=== PATIENT | male | born 1990 | race Caucasian/White ===

== ENCOUNTER 2017-05-12 10:06 | Emergency (ER) | payer OTHER ==
[2017-05-12] MEDS ORDERED: MECLIZINE 12.5 MG TAB PO STA ×2 (10:28→11:20)
[2017-05-12] MEDS ORDERED: SODIUM CHLORIDE 0.9% 1,000 ML IV STA (10:28)
--- NOTE | 2017-05-12 10:31 | ED ---
General Adult HPI - General Chief complaint: Headache Stated complaint: Dizzy Time Seen by Provider: 05/12/17 10:14 Source: patient, RN notes reviewed Mode of arrival: ambulatory Limitations: no limitations - History of Present Illness Initial comments: Patient 27-year-old male with no significant past medical history, who presents emergency room today with chief complaint of feeling dizzy, and having a headache. Patient does admit that the dizziness started 4 days ago. States he feels a unsteady on his feet. States started when he was at home doing some work around the house. Patient does admit that symptoms have persisted. He states that he did go to urgent care 2 days ago for this was diagnosed with vertigo. States he was placed on a steroid Dosepak because there was some fluid on his ears. Patient states that headache started yesterday. States located to the back of his head. Describes it as aching and sharp. Currently rates as 6/10. She also admits to some blurry vision that seems to come and go. States that this time there is no blurry vision. Patient denies any other complaints or symptoms. Patient denies any recent fever, chills, shortness of breath, chest pain, back pain, abdominal pain, nausea or vomiting, numbness or tingling, dysuria or hematuria, constipation or diarrhea, or any other complaints. - Related Data Home Medications Medication Instructions Recorded Confirmed methylPREDNISolone [Medrol Dose See Taper PO DIRECTED 05/12/17 05/12/17 Pack] Previous Rx's Medication Instructions Recorded Meclizine [Antivert] 25 mg PO DAILY 10 Days tab 05/12/17 Allergies Allergy/AdvReac Type Severity Reaction Status Date / Time codeine Allergy Dyspnea Verified 05/12/17 10:33 Review of Systems ROS Statement: Those systems with pertinent positive or pertinent negative responses have been documented in the HPI. ROS Other: All systems not noted in ROS Statement are negative. Past Medical History Past Medical History: Asthma Additional Past Medical History / Comment(s): LT WRIST INFECTION, IBS, ADHD History of Any Multi-Drug Resistant Organisms: None Reported Date of last positivie culture/infection: None MDRO Source:: None Additional Past Surgical History / Comment(s): right ankle ( OCD LESIONS) Past Anesthesia/Blood Transfusion Reactions: Motion Sickness Past Psychological History: ADD/ADHD Smoking Status: Current every day smoker Past Alcohol Use History: None Reported, Occasional Past Drug Use History: None Reported - Past Family History Father Family Medical History: Unable to Obtain Additional Family Medical History / Comment(s): FROM MVA AGE 22 Mother Family Medical History: COPD, Diabetes Mellitus, Hyperlipidemia, Hypertension Additional Family Medical History / Comment(s): MVP, General Exam - General Exam Comments Initial Comments: General: The patient is awake and alert, in no distress, and does not appear acutely ill. Eye: Pupils are equal, round and reactive to light, extra-ocular movements are intact. No nystagmus. There is normal conjunctiva bilaterally. No signs of icterus. Ears, nose, mouth and throat: There are moist mucous membranes and no oral lesions. Neck: The neck is supple, there is no tenderness or JVD. Cardiovascular: There is a regular rate and rhythm. No murmur, rub or gallop is appreciated. Respiratory: Lungs are clear to auscultation, respirations are non-labored, breath sounds are equal. No wheezes, stridor, rales, or rhonchi. Musculoskeletal: Normal ROM, no tenderness. Strength 5/5. Sensation intact. Pulses equal bilaterally 2+. Neurological: A&O x 3. CN II-XII intact, There are no obvious motor or sensory deficits. Coordination appears grossly intact. Speech is normal. Normal finger to nose testing. Normal rapid alternating movements. Strength 5/5 bilaterally in both upper and lower extremities. Skin: Skin is warm and dry and no rashes or lesions are noted. Psychiatric: Cooperative, appropriate mood & affect, normal judgment. Limitations: no limitations Course Vital Signs 05/12/17 10:08 Temperature 97.8 F Pulse Rate 78 Respiratory 16 Rate Blood Pressure 165/79 O2 Sat by Pulse 100 Oximetry EKG Findings - EKG Comments: EKG Findings:: EKG performed at 1044: A 12-lead EKG was performed and interpreted by me as showing the following: Rate is 64, and rhythm is normal sinus. There are normal QRS complexes and normal R-wave progression. ST segments have no elevation or depression, and NH segments appear normal. Medical Decision Making - Medical Decision Making The patient's CT reviewed is negative for any acute abnormality. Patient's labs been reviewed are unremarkable. EKG shows normal sinus rhythm. Patient states feeling better at this time would like to be discharged. Patient will be discharged with a prescription for meclizine. - Lab Data Result diagrams: 05/12/17 10:39 05/12/17 10:39 Lab Results 05/12/17 05/12/17 05/12/17 Range/Units 10:39 10:39 10:39 WBC 7.8 (3.8-10.6) k/uL RBC 5.59 (4.30-5.90) m/uL Hgb 18.0 H (13.0-17.5) gm/dL Hct 53.2 H (39.0-53.0) % MCV 95.2 (80.0-100.0) fL MCH 32.1 (25.0-35.0) pg MCHC 33.8 (31.0-37.0) g/dL RDW 14.4 (11.5-15.5) % Plt Count 221 (150-450) k/uL Neutrophils % 70 % Lymphocytes % 22 % Monocytes % 5 % Eosinophils % 1 % Basophils % 0 % Neutrophils # 5.4 (1.3-7.7) k/uL Lymphocytes # 1.7 (1.0-4.8) k/uL Monocytes # 0.4 (0-1.0) k/uL Eosinophils # 0.1 (0-0.7) k/uL Basophils # 0.0 (0-0.2) k/uL Sodium 140 (137-145) mmol/L Potassium 4.3 (3.5-5.1) mmol/L Chloride 98 (98-107) mmol/L Carbon Dioxide 30 (22-30) mmol/L Anion Gap 12 mmol/L BUN 16 (9-20) mg/dL Creatinine 0.69 (0.66-1.25) mg/dL Est GFR (MDRD) Af Amer >60 (>60 ml/min/1.73 sqM) Est GFR (MDRD) Non-Af >60 (>60 ml/min/1.73 sqM) Glucose 96 (74-99) mg/dL Calcium 10.2 (8.4-10.2) mg/dL Total Bilirubin 0.7 (0.2-1.3) mg/dL AST 20 (17-59) U/L ALT 36 (21-72) U/L Alkaline Phosphatase 69 (38-126) U/L Total Protein 8.2 (6.3-8.2) g/dL Albumin 5.1 H (3.5-5.0) g/dL Lipase 69 (23-300) U/L Urine Color Yellow Urine Appearance Clear (Clear) Urine pH 6.5 (5.0-8.0) Ur Specific [place] 1.007 (1.001-1.035) Urine Protein Negative (Negative) Urine Glucose (UA) Negative (Negative) Urine Ketones Negative (Negative) Urine Blood Negative (Negative) Urine Nitrite Negative (Negative) Urine Bilirubin Negative (Negative) Urine Urobilinogen <2.0 (<2.0) mg/dL Ur Leukocyte Esterase Negative (Negative) Disposition Clinical Impression: Dizziness Disposition: HOME SELF-CARE Condition: Good Instructions: Lightheadedness (ED) Additional Instructions: Please use medication as discussed. Please follow-up with family doctor in the next 2 days of symptoms have not improved. Please return to emergency room if the symptoms increase or worsen or for any other concerns. Prescriptions: Meclizine [Antivert] 25 mg PO DAILY 10 Days tab Referrals: None,Stated [Primary Care Provider] - 1-2 days Any Robertson MD [STAFF PHYSICIAN] - 1-2 days Time of Disposition: 11:58
[2017-05-12 10:53] LABS: Basophils % (A) 0 %; Eosinophils # (A) 0.1 k/uL (0-0.7); Eosinophils % (A) 1 %; HCT 53.2 % (39.0-53.0); Lymphocytes # (A) 1.7 k/uL (1.0-4.8); Lymphocytes % (A) 22 %; MCH 32.1 pg (25.0-35.0); MCHC 33.8 g/dL (31.0-37.0); MCV 95.2 fL (80.0-100.0); Mean Platelet Volume 6.7; Monocytes # (A) 0.4 k/uL (0-1.0); Monocytes % (A) 5 %; Neutrophils # (A) 5.4 k/uL (1.3-7.7); Neutrophils % (A) 70 %; Platelet Count 221 k/uL (150-450); RBC 5.59 m/uL (4.30-5.90); RDW 14.4 % (11.5-15.5); WBC 7.8 k/uL (3.8-10.6)
[2017-05-12 11:07] LABS: Appearance,Urine Clear (Clear); Bilirubin,Urine Negative (Negative); Blood,Urine Negative (Negative); Color,Urine Yellow; Glucose,Urine (UA) Negative (Negative); Ketones,Urine Negative (Negative); Leukocyte Esterase,Urine Negative (Negative); Nitrite,Urine Negative (Negative); PH, Urine 6.5 (5.0-8.0); Protein,Urine Negative (Negative); Specific Gravity,Urine 1.007 (1.001-1.035); Urobilinogen,Urine <2.0 mg/dL (<2.0)
[2017-05-12 11:10] LABS: ALT 36 U/L (21-72); AST 20 U/L (17-59); Albumin 5.1 g/dL (3.5-5.0); Alkaline Phosphatase 69 U/L (38-126); Anion Gap 12 mmol/L; Blood Urea Nitrogen 16 mg/dL (9-20); Calcium 10.2 mg/dL (8.4-10.2); Carbon Dioxide 30 mmol/L (22-30); Chloride 98 mmol/L (98-107); Glucose 96 mg/dL (74-99); Lipase 69 U/L (23-300); Potassium 4.3 mmol/L (3.5-5.1); Sodium 140 mmol/L (137-145); Total Bilirubin 0.7 mg/dL (0.2-1.3); Total Protein 8.2 g/dL (6.3-8.2)
--- NOTE | 2017-05-12 11:16 | CT ---
EXAMINATION TYPE: CT brain wo con DATE OF EXAM: 05/12/2017 COMPARISON: NONE INDICATION: Patient complains of dizziness, blurry vision, headache, and nausea. DLP: 865.3 mGycm, Automated exposure control for dose reduction was used. CONTRAST: None CT of the brain is performed utilizing 3 mm thick sections through the posterior fossa and 3 mm thick sections through the remaining calvarium. Study is performed within 24 hours of arrival to the hosp ital. No abnormal hyperdensity is present to suggest an acute intracranial hemorrhage. No mass lesion is evident. No acute infarcts are evident. Ventricles and sulci are appropriate for the patient age. There is a patent cavum septum pellucidum, normal variant. Cavum vergae is also present, normal variant. Paranasal sinuses and mastoid air cells within the [id number] are clear. IMPRESSIONS: 1. Normal CT Brain
[2017-05-12] MEDS ORDERED: KETOROLAC 30 MG/ML 1 ML VIAL IVP STA (11:19)
[2017-05-12] MEDS ORDERED: METOCLOPRAMIDE 5 MG/ML 2 ML VIAL IVP STA (11:20)
[2017-05-12 23:23] VITALS: BP 165/79; PULSE 78; RESP 16; TEMP 97.8
== END 2017-05-12 12:04 | disposition home or self-care (01) ==
LOC: EC 10:06
DX: R42 Dizziness and giddiness (principal); R51 Headache; H53.8 Other visual disturbances; J45.909 Unspecified asthma, uncomplicated; F17.200 Nicotine dependence, unspecified, uncomplicated; Z79.52 Long term (current) use of systemic steroids
CPT/HCPCS: 36415; 93005; 80053; 83690; 85025; 81003; 70450; 99284; 96374; 96375; 96360; J2765; J1885

== ENCOUNTER → 2019-06-09 | Outpatient (CLI) | payer OTHER ==
--- NOTE | 2019-06-09 11:50 | XR ---
EXAMINATION TYPE: XR shoulder complete LT DATE OF EXAM: 06/09/2019 CLINICAL HISTORY: Neck pain and left shoulder pain after lifting injury. TECHNIQUE: Three views of the left shoulder are obtained. COMPARISON: None. FINDINGS: There is no acute fracture/dislocation evident in the left shoulder. The acromioclavicula r and glenohumeral joint spaces appear within normal limits. The visualized ribs are intact and unre markable. IMPRESSION: There is no acute fracture or dislocation in the left shoulder.
--- NOTE | 2019-06-09 12:31 | XR ---
EXAMINATION TYPE: XR cervical spine comp DATE OF EXAM: 06/09/2019 TECHNIQUE: Frontal, lateral, oblique, swimmers, and open mouth view of the cervical spine are obtaine d. HISTORY: M54.2 cervicalgia COMPARISON: None FINDINGS: The cervical spine is visualized in its entirety from C1 thru the top of T1 level, it is s atisfactory in alignment without evidence of acute fracture or dislocation. The pre-vertebral soft t issue appears within normal limits. The C1-C2 articulation is within normal limits on the open mouth view. The oblique images are within normal limits. IMPRESSION: No acute fracture or malalignment is seen in the cervical spine.
== END | disposition home or self-care (01) ==
LOC: RADXRMAIN 11:22
PROVIDERS: ATTEND Emergency Medicine
DX: M54.2 Cervicalgia (principal); S46.012A Strain of muscle(s) and tendon(s) of the rotator cuff of left shoulder, initial encounter; R20.9 Unspecified disturbances of skin sensation
CPT/HCPCS: 72050

== ENCOUNTER 2019-06-13 03:37 | Emergency (ER) | payer OTHER ==
[2019-06-13] MEDS ORDERED: KETOROLAC 30 MG/ML 1 ML VIAL IM STA (03:51)
[2019-06-13 03:53] VITALS: BP 174/100; PULSE 90; RESP 18; TEMP 98
--- NOTE | 2019-06-13 03:54 | ED ---
Extremity Problem HPI - General Stated complaint: R Ankle Injury Time Seen by Provider: 06/13/19 03:51 - History of Present Illness Initial comments: 29-year-old male patient presents to the emergency department today for evaluation of sudden onset right ankle pain. Patient states pain started around 11:30 this evening. Patient states he was at work. Denies any known injury to the ankle. Denies history of similar symptoms. Denies recent antibiotic use. Denies new footwear. States he did take a 600 mg ibuprofen without relief. 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 Denies any numbness or tingling to the foot. Denies fever or chills. Denies any swelling to the area. Denies any other complaints. - Related Data Home Medications Medication Instructions Recorded Confirmed methylPREDNISolone [Medrol Dose See Taper PO DIRECTED 05/12/17 05/12/17 Pack] Previous Rx's Medication Instructions Recorded Meclizine [Antivert] 25 mg PO DAILY 10 Days tab 05/12/17 Naproxen [EC-Naprosyn] 500 mg PO BID PRN #30 tablet. 06/13/19 Allergies Allergy/AdvReac Type Severity Reaction Status Date / Time codeine Allergy Dyspnea Verified 05/12/17 10:33 Review of Systems ROS Statement: Those systems with pertinent positive or pertinent negative responses have been documented in the HPI. ROS Other: All systems not noted in ROS Statement are negative. Past Medical History Past Medical History: Asthma Additional Past Medical History / Comment(s): LT WRIST INFECTION, IBS, ADHD History of Any Multi-Drug Resistant Organisms: None Reported Date of last positivie culture/infection: None MDRO Source:: None Additional Past Surgical History / Comment(s): right ankle ( OCD LESIONS) Past Anesthesia/Blood Transfusion Reactions: Motion Sickness Past Psychological History: ADD/ADHD Smoking Status: Current every day smoker Past Alcohol Use History: None Reported, Occasional Past Drug Use History: None Reported - Past Family History Father Family Medical History: Unable to Obtain Additional Family Medical History / Comment(s): FROM MVA AGE 22 Mother Family Medical History: COPD, Diabetes Mellitus, Hyperlipidemia, Hypertension Additional Family Medical History / Comment(s): MVP, General Exam General appearance: alert, in no apparent distress, other (Physical well- developed, well-nourished adult male patient in no acute distress.) Eye exam: Present: normal appearance, PERRL, EOMI. Absent: scleral icterus, conjunctival injection, periorbital swelling ENT exam: Present: normal exam, normal oropharynx, mucous membranes moist Respiratory exam: Present: normal lung sounds bilaterally. Absent: respiratory distress, wheezes, rales, rhonchi, stridor Cardiovascular Exam: Present: regular rate, normal rhythm, normal heart sounds. Absent: systolic murmur, diastolic murmur, rubs, gallop, clicks GI/Abdominal exam: Present: soft, normal bowel sounds. Absent: distended, tenderness, guarding, rebound, rigid Extremities exam: Present: normal inspection, full ROM, normal capillary refill, other (Increased pain with flexion of the foot. Skin is pink, warm, dry. Cap refills less than 3 seconds. Pedal and posttibial pulses are 2+ and equal bilaterally. There is no Achilles tendon tenderness. Negative Gonsalves test.). Absent: tenderness, pedal edema, joint swelling, calf tenderness Neurological exam: Present: alert, oriented X3, CN II-XII intact Psychiatric exam: Present: normal affect, normal mood Skin exam: Present: warm, dry, intact, normal color. Absent: rash Course Vital Signs 06/13/19 03:50 Temperature 98 F Pulse Rate 90 Respiratory 18 Rate Blood Pressure 174/100 O2 Sat by Pulse 99 Oximetry Medical Decision Making - Medical Decision Making 29-year-old male patient presents to the emergency department today for evaluation of acute onset right ankle pain. There is no injury. Physical examination is unremarkable, there is some tenderness over the insertion site of the Achilles tendon. X-ray was negative. Patient is afebrile. Patient symptoms seem consistent with tendinitis. She'll be given prescription for anti-inflammatory medication. He is instructed to rest and elevate the ankle. He is instructed to follow-up with his primary care physician for recheck in 1-2 days. Return parameters discussed in detail. He verbalizes understanding and agrees with this plan. - Radiology Data Radiology results: report reviewed, image reviewed 3 views of the right ankle are obtained. Report was reviewed in its entirety. Impression by Dr. Machuca shows no fracture seen. There is old focus of osteochondritis dissecans in the medial dome of the talus unchanged compared to old exam per Disposition Clinical Impression: Right ankle tendonitis Disposition: HOME SELF-CARE Condition: Good Instructions (If sedation given, give patient instructions): Tendinitis (ED) Additional Instructions: Rest, ice, elevate the ankle. Take anti-and laboratory medication as directed. Follow-up with your primary care physician for further evaluation as is possible. Return to the emergency department immediately for any new, worsening, or concerning symptoms. Concerning symptoms would be redness or significant swelling to the ankle, or fever. Prescriptions: Naproxen [EC-Naprosyn] 500 mg PO BID PRN #30 tablet.dr REYES Reason: Pain Is patient prescribed a controlled substance at d/c from ED?: No Referrals: Polo Solano MD [Primary Care Provider] - 1-2 days Time of Disposition: 04:19
--- NOTE | 2019-06-13 04:05 | XR ---
EXAMINATION TYPE: XR ankle complete RT DATE OF EXAM: 06/13/2019 COMPARISON: 09/23/2013 HISTORY: Pain TECHNIQUE: 3 views FINDINGS: Ankle mortise is anatomic. I see no fracture nor dislocation. There is 8 mm osteochondral d efect in the medial dome of the talus. Joint spaces are fairly normal. IMPRESSION: No fracture seen. There is old focus of osteochondritis dissecans in the medial dome of t he talus unchanged compared to old exam.
[2019-06-13] MEDS ORDERED: traMADol 50 MG STARTER PACK 3 TAB BTL PO STA (04:24)
== END 2019-06-13 04:51 | disposition home or self-care (01) ==
LOC: EC 03:37
DX: M77.51 Other enthesopathy of right foot and ankle (principal); J45.909 Unspecified asthma, uncomplicated; F17.200 Nicotine dependence, unspecified, uncomplicated; Z79.899 Other long term (current) drug therapy; Z88.5 Allergy status to narcotic agent
CPT/HCPCS: 73610; 99283; J1885

== ENCOUNTER 2019-07-13 06:48 | Day surgery (SDC) | payer OTHER ==
[2019-07-11 11:58] VITALS: BMI 28.5
[~2019-07-13 06:48] MED LIST: DEXAMETHASONE SOD PHOSPHATE 10 MG/ML 1 ML VIAL IV ONE; LACTATED RINGERS 1,000 ML IV SCH; LIDOCAINE 1% (10MG/ML) FOR IV START INTRADERMA PRN; MIDAZOLAM 2 MG/2 ML VIAL IV PRN; fentaNYL (PF) 50 MCG/ML 2 ML AMP IV PRN; fentaNYL (PF) 50 MCG/ML 2 ML AMP IVP PRN
[2019-07-13] MEDS ORDERED: ONDANSETRON 4 MG/2 ML VIAL IVP ONE (07:14)
[2019-07-13] MEDS ORDERED: SCOPOLAMINE 1.5MG/72HR PATCH TRANSDERM ONE (07:15)
[2019-07-13] MEDS ORDERED: fentaNYL (PF) 50 MCG/ML 2 ML AMP IV ONE (08:25)
[2019-07-13] MEDS ORDERED: MIDAZOLAM 2 MG/2 ML VIAL IV ONE (08:25)
[2019-07-13 08:40] VITALS: RESP 16
[2019-07-13] MEDS ORDERED: fentaNYL (PF) 50 MCG/ML 2 ML AMP ONE (09:40)
[2019-07-13] MEDS ORDERED: ROPIVACAINE 5 MG/ML 30 ML VIAL ONE (09:40)
[2019-07-13] MEDS ORDERED: PROPOFOL 10 MG/ML 20 ML VIAL IV ONE (09:40)
[2019-07-13] MEDS ORDERED: MIDAZOLAM 2 MG/2 ML VIAL ONE (09:40)
[2019-07-13] MEDS ORDERED: LIDOCAINE 1% INJ 10MG/ML (20 ML MDV) ONE (09:40)
[2019-07-13] MEDS ORDERED: KETOROLAC 30 MG/ML 1 ML VIAL ONE (09:40)
[2019-07-13] MEDS ORDERED: SODIUM CHLORIDE 0.9% 100 ML BAG ONE (09:40)
[2019-07-13] MEDS ORDERED: BUPIVACAINE (PF) 0.5% 30 ML VIAL INTRAARTIC ONE (10:10)
--- NOTE | 2019-07-13 10:45 | P.ANPRN ---
Procedure Note - Anesthesia - Nerve Block Performed Right Popliteal Single Time Out Performed: Yes (825) Date of Procedure: 07/13/19 Procedure Start Time: 08:26 Procedure Stop Time: 08:32 Location of Patient: PreOp Indication: Acute Post-Operative Pain, Requested by Surgeon Specifically requested for management of pain by DrMyra: Epi Angeles Sedation Type: Sedate with meaningful contact maintained Preparation: Sterile Prep Position: Left Lateral Catheter: None Needle Types: Pajunk Needle Gauge: 20, 21 Ultrasound used to visualize needle placement: Yes Ultrasound used to observe medication spread: Yes Injectate: 0.5% Ropivacaine (see comment for volume) (15cc) Blood Aspirated: No Pain Paresthesia on Injection Noted: No Resistance on Injection: Normal Image Stored and Saved: Yes Events: Uneventful and Well Tolerated Right Adductor Canal Single Time Out Performed: Yes (825) Date of Procedure: 07/13/19 Procedure Start Time: 08:33 Procedure Stop Time: 08:36 Location of Patient: PreOp Indication: Acute Post-Operative Pain, Requested by Surgeon Specifically requested for management of pain by DrMyra: Epi Angeles Sedation Type: Sedate with meaningful contact maintained Preparation: Sterile Prep Position: Supine Catheter: None Needle Types: Pajunk Needle Gauge: 20 Ultrasound used to visualize needle placement: Yes Ultrasound used to observe medication spread: Yes Injectate: 0.5% Ropivacaine (see comment for volume) (15cc) Blood Aspirated: No Pain Paresthesia on Injection Noted: No Resistance on Injection: Normal Image Stored and Saved: Yes Events: Uneventful and Well Tolerated
--- NOTE | 2019-07-13 11:11 | P.OP ---
Date of Procedure: 07/13/19 Preoperative Diagnosis: Recurrent osteochondral defect, right ankle Postoperative Diagnosis: Same Procedure(s) Performed: 1. Right ankle arthroscopy with microfracture of medial osteochondral defect measuring 1 cm in diameter Anesthesia: AVIVA regional Surgeon: Epi Angeles Overlock Sewing Machine Operator #1: Julio Coburn Estimated Blood Loss (ml): 10 IV fluids (ml): 1,000 Pathology: none sent Condition: stable Disposition: PACU Indications for Procedure: The patient is very pleasant. Healthy 29-year-old male who has had a long- standing history of problems with both of his ankles. His previously undergone surgery for bilateral osteochondral defects. He had recurrent pain in the right ankle and came to my office discuss treatment. On exam he had tenderness over the medial aspect of the ankle. His ankle is stable to varus and valgus stress. An MRI was obtained that showed an osteochondral defect in the medial talar dome. We discussed continued nonsurgical treatment versus surgery. The patient requested surgery. My recommendation was to perform a diagnostic arthroscopy and then treat the lesion depending on its size. We discussed either marrow stimulation or use of the [place] allograft cartilage. The patient understands the potential risks and competitions of surgery having previously undergone similar surgeries on both of his ankles. Risks discussed with Manish include but are certainly not limited to risk of anesthesia, infection, delayed wound healing, draining sinuses, intra-articular damage to the cartilage, recurrence, continued or worsened pain, DVT, PE, and other medical complications, and inability to regain preinjury level of function, possibly loss of life or limb. The patient voiced his understanding of all these are the most common complications other less common competitions are possible. He provided his verbal and written consent to go forward with surgery. Operative Findings: The patient had a 1 cm osteochondral defect with a loose cartilage flap over the medial talar dome. After the loose flap was debrided the defect was measured 1 cm. It had a stable rim of cartilage and firm subchondral bone. The lesion appeared amenable to marrow stimulation with microfracture. Prior to performing the arthroscopy a stress exam under anesthesia was performed and the patient had no evidence of varus or valgus ankle instability. Description of Procedure: The patient was identified and prepped with holding and the correct right ankle was marked with my initials. I reviewed the consent form with the patient and his . All their questions were answered. A block was given by anesthesia. The patient was then brought back to the operating room by anesthesia. He was positioned on the or table where general anesthetic and p reoperative antibiotics were given. A tourniquet was applied the proximal aspect of the right leg. A timeout was performed identifying the correct patient, operative extremity, and procedure. With the patient under anesthesia stress exam was performed. There was no evidence of varus or anterior drawer instability. The deltoid ligament appeared stable. The right leg was then prepped and draped in the standard sterile fashion. Prior to starting surgery timeout was performed identifying the correct patient, operative extremity, and procedure. The patient's leg was then elevated, exsanguinated with an Esmarch bandage, and the tourniquet was applied to 250 mmHg. I began by marking out the scars from the prior ankle arthroscopy which appeared to be in appropriate position. Using a spinal needle 20 mL's of sterile saline was injected into the ankle and the ankle dorsiflexed. Stab incisions were made through the skin only using an 11 blade. An arthroscope was then introduced into the anteromedial portal. A blunt probe was placed through the anterolateral portal. A diagnostic arthroscopy commenced. There was significant inflamed synovium in the anterior recess of the ankle joint. There was a loose osteochondral flap in the mid medial portion of the talar dome. There were no impinging lesions of the dorsal talar neck, medial gutter, or lateral gutter. At this point the loose osteochondral flap was contoured back using a curet, biter, and arthroscopic shaver. Once the loose flap had been debrided and there appeared to be a stable lesion with firm borders. The lesion measured 5 mm. There is a healthy bed of subchondral bone. Due to the size, location, and stability of the lesion I elected to perform a microfracture. Using arthroscopic microfracture awls several punctures were made in the subchondral bone. That droplets were seen. An arthroscopic shaver was then introduced in the ankle and a synovectomy was performed. The arthroscopic inserts were removed and the portals were closed. A sterile dressing was applied followed by well-padded bulky Isbell splint with the ankle in neutral. The tourniquet was let down. I verified that all answered, sponge, and sharp counts were correct. The patient was then awoken from his anesthetic, transferred from the OR table, and brought to recovery and procedure well. Julio Coburn PA-C was required as a skilled printer assistant. Plan: The patient is going to be placed in a well-padded bulky Isbell splint. He is to be nonweightbearing on the leg. He'll follow-up in 2 weeks at which point he needs his splint removed and a wound check. He does not need it was at that time.
[2019-07-13 11:22] VITALS: TEMP 97.2
[2019-07-13 12:28] VITALS: BP 111/67; PULSE 79
== END 2019-07-13 12:45 | disposition home or self-care (01) ==
LOC: OR 06:48
PROVIDERS: ATTEND Orthopaedic Surgery
DX: M93.271 Osteochondritis dissecans, right ankle and joints of right foot (principal); J45.909 Unspecified asthma, uncomplicated; Z87.891 Personal history of nicotine dependence; Z88.5 Allergy status to narcotic agent; Z79.1 Long term (current) use of non-steroidal anti-inflammatories (NSAID); Z97.3 Presence of spectacles and contact lenses; Z83.3 Family history of diabetes mellitus; Z82.49 Family history of ischemic heart disease and other diseases of the circulatory system
CPT/HCPCS: 29891; 64447; 64450; 76942; J2250; J1100; J0690; J2405; J2001; J3010; J1885; J2795; J2704; 64445

== ENCOUNTER → 2019-08-31 | Outpatient (CLI) | payer OTHER ==
--- NOTE | 2019-08-31 09:49 | CT ---
EXAMINATION TYPE: CT abdomen pelvis wo con DATE OF EXAM: 08/31/2019 HISTORY: Lt flank pain, hematuria CT DLP: 415.5 mGycm. Automated Exposure Control for Dose Reduction was Utilized. TECHNIQUE: CT scan of the abdomen and pelvis is performed without oral or IV contrast. COMPARISON: NONE FINDINGS: Within the limitations of a non-contrast study, the following observations are made. LUNG BASES: No significant abnormality is appreciated. LIVER/GB: No significant abnormality is appreciated. PANCREAS: No significant abnormality is seen. SPLEEN: No significant abnormality is seen. ADRENALS: No significant abnormality is seen. KIDNEYS: There is 4 to 5 mm nonobstructing calculus upper pole right kidney axial image 48. There is punctate 1 to 2 mm calculus lower pole level right kidney coronal image 51. No definitive left-sided nephrolithiasis. No hydronephrosis or obstructing ureteral calculi clearly seen bilaterally. No intra luminal calculi in the poorly distended bladder. Occasional scattered pelvic phleboliths. BOWEL: Suboptimal evaluation without enteric contrast. No suspicious small or large bowel dilatation. Appendix upper limits of normal in size extending from cecum coronal image 50 without surrounding in flammatory change. GENITAL ORGANS: No gross abnormality seen. LYMPH NODES: No greater than 1cm abdominal or pelvic lymph nodes are appreciated. OSSEOUS STRUCTURES: Slight levoconvex scoliotic curvature centered near the thoracolumbar junction. M [id number] narrowing of both hip joints. OTHER: Tiny fat-containing umbilical hernia . IMPRESSION: There are 2 nonobstructing right renal calculi. No hydronephrosis or obstructing ureteral calculi bilaterally. No suspicious acute findings identified to comp for patient's symptoms of left- sided flank pain.
== END | disposition home or self-care (01) ==
LOC: RADCTMAIN 09:04
PROVIDERS: ATTEND Family Medicine
DX: N20.0 Calculus of kidney (principal)
CPT/HCPCS: 74176

== ENCOUNTER → 2021-02-17 | Outpatient (CLI) | payer OTHER ==
--- NOTE | 2021-02-17 12:57 | XR ---
Left shoulder HISTORY: S16.1XXA S46.912A 3 views of the left shoulder correlated prior exam 06/09/2019 Exam is stable. Bone mineralization, joint spaces and alignment are maintained. No fracture or disloc ation. IMPRESSION: Normal left shoulder
--- NOTE | 2021-02-17 12:58 | XR ---
Cervical spine HISTORY: Trauma and pain, S16.1XXA S46.912A 7 views of the cervical spine correlated to prior exam 06/09/2019 Cervical vertebral bodies show preserved height, alignment, and bone mineralization. Disc spaces are maintained. No significant foraminal encroachment noted on oblique views with the exception C3-4 on t he left and on the right mildly narrowed, on the left there may be suboptimal obliquity. Prevertebral soft tissues are normal. IMPRESSION: No acute fracture or subluxation. Questionable foraminal encroachment.
== END | disposition home or self-care (01) ==
LOC: RADXRMAIN 12:12
PROVIDERS: ATTEND Emergency Medicine
DX: M54.2 Cervicalgia (principal); S46.912A Strain of unspecified muscle, fascia and tendon at shoulder and upper arm level, left arm, initial encounter; S19.9XXA Unspecified injury of neck, initial encounter
CPT/HCPCS: 72050